=== PATIENT | female | born 1970 | race Caucasian/White ===

== ENCOUNTER → 2017-08-30 | Outpatient (CLI) | payer BC | END | disposition home or self-care (01) | LOC: KCIC MAMMO 07:52 | DX: Z12.31 Encounter for screening mammogram for malignant neoplasm of breast (principal) | CPT/HCPCS: 77067 ==

== ENCOUNTER → 2019-07-22 | Outpatient (CLI) | payer BC ==
--- NOTE | 2019-07-22 18:30 | KCIC ---
Bilateral digital screening mammograms: Reason for examination: Routine screening. Comparison is made to previous study dated 08/30/2017. Interpretation was made with the benefit of CAD. The skin and nipples show no abnormalities. No abnormal axillary lymph nodes are seen. The breast parenchyma shows scattered fibroglandular density. (Breast density: Category B.) There continues to be asymmetric parenchyma in the upper outer quadrant of the right breast which is stable. There is suggestion of some nodularity at the 2:00 B position of the left breast. Further evaluation with ultrasound is recommended. There are no other new dominant masses, suspicious calcifications or architectural distortions. Impression: New nodularity at the 2:00 B position of the left breast. Recommend further evaluation with ultrasound. BI-RADS Category 0: Incomplete. Needs additional imaging evaluation. "Our facility is accredited by the [employer] Mammography [employer]." This patient's information has been entered into a reminder system for the patient to be notified with the results of her examination and a target date for the next mammogram. Electronically signed by: Neda Feldman MD (07/22/2019 6:27 PM) [id number]
== END | disposition home or self-care (01) ==
LOC: KCIC MAMMO 14:11
PROVIDERS: ATTEND Family Medicine
DX: Z12.31 Encounter for screening mammogram for malignant neoplasm of breast (principal); N64.89 Other specified disorders of breast
CPT/HCPCS: 77067

== ENCOUNTER → 2019-08-28 | Outpatient (CLI) | payer BC ==
--- NOTE | 2019-08-28 13:06 | KCIC ---
Left breast ultrasound COMPARISON: Mammogram July 22, 2019 and August 30, 2017 HISTORY: Workup of left upper outer breast 2:00 B position nodular asymmetry. FINDINGS: There is subareolar duct ectasia with extension to the outer breast 3:00 position. At the 2:00 position 6 cm the nipple there is a parallel hypoechoic nonshadowing 5 x 2 mm lesion which is most likely fibrocystic change, which is concordant with the mammogram. Interest. No suspicious abnormality. No axillary adenopathy. IMPRESSION: Left upper outer breast probably benign. Cystic change as well as benign subareolar and outer breast duct ectasia, concordant with the mammographic area of interest. Imaging features are probably benign. Attention on follow-up left mammogram and breast ultrasound in 6 months is advised to document stability. BI-RADS Category 3: Probably benign Electronically signed by: Daryl You MD (08/28/2019 1:03 PM) [id number]
== END | disposition home or self-care (01) ==
LOC: KCIC US 12:26
PROVIDERS: ATTEND Obstetrics & Gynecology
DX: R92.8 Other abnormal and inconclusive findings on diagnostic imaging of breast (principal); N64.89 Other specified disorders of breast; N60.42 Mammary duct ectasia of left breast; N60.02 Solitary cyst of left breast
CPT/HCPCS: 76641

== ENCOUNTER → 2020-02-17 | Outpatient (CLI) | payer BC ==
--- NOTE | 2020-02-17 10:56 | RAD ---
EXAM: Left breast diagnostic mammogram with tomosynthesis; left breast sonogram. HISTORY: 49-year-old female presents for follow-up evaluation of benign-appearing findings within the left breast demonstrated on a mammogram dated 07/22/2019 and sonogram dated 08/28/2019. TECHNIQUE: Full-field digital craniocaudal and mediolateral oblique 2D and 3D tomosynthesis images of both breasts are obtained for evaluation. Computer aided detection was applied. Sonographic imaging of the left breast targeted to sites of findings on the prior study was also performed. COMPARISON: 08/28/2019, 07/22/2019 and 08/30/2017 BREAST PARENCHYMAL DENSITY: Level B - Scattered fibroglandular densities. FINDINGS: There is no new suspicious mass, microcalcification or region of architectural distortion. There is stable increased density within the subareolar aspect of the left breast likely due to previ ously demonstrated ductal ectasia. Sonographic imaging of the left breast demonstrates a stable 3.6 mm suspected benign fibrocystic lesi on at the 2:00 position 6 cm from the nipple. There is ductal ectasia within the subareolar breast pr imarily at the 3:00 position. No intraductal mass is seen. There is no new suspicious sonographic fin ding. IMPRESSION: 1. Stable tiny suspected benign cystic lesion within the 2:00 position of the left breast and ductal ectasia within the subareolar aspect of the left breast. 2. BI-RADS Category 3: Probably benign finding(s). Short term follow up with a left breast sonogram i n 6 months to recommend a year of stability of the finding at the 2:00 position and correspond with t he previously established bilateral mammography interval is recommended. If your mammogram demonstrates that you have dense breast tissue, which could hide abnormalities, and if you have other risk factors for breast cancer that have been identified, you might benefit from s upplemental screening tests that may be suggested by your ordering physician. Dense breast tissue, i n and of itself, is a relatively common condition. This information is not provided to cause undue c oncern, but rather to raise your awareness and to promote discussion with your physician regarding th e presence of other risk factors, in addition to dense breast tissue. A report of your mammography re sults will be sent to you and your physician. You should contact your physician if you have any ques tions or concerns regarding this report. Mammography is a sensitive method for finding small breast cancers, but it does not detect them all a nd is not a substitute for careful clinical examination. A negative mammogram does not negate a clin ically suspicious finding and should not result in delay in biopsying a clinically suspicious abnorma lity. PQRS compliance statement - Patient information was entered into a reminder system with a target due date for the next mammogram. "Our facility is accredited by the [employer] Mammography [employer]." Electronically signed by: Kaleigh Borjas MD (02/17/2020 10:54 AM) [id number]
== END ==
LOC: MAMMO 10:13
PROVIDERS: ATTEND Surgery
DX: N60.42 Mammary duct ectasia of left breast (principal)
CPT/HCPCS: 76641; 77065; G0279; 77061

== ENCOUNTER → 2020-05-06 | Outpatient (CLI) | payer BC ==
--- NOTE | 2020-05-06 17:31 | RAD ---
Examination: 1. Right digital diagnostic mammogram 2. Limited right breast ultrasound. INDICATION: 49-year-old woman presents for imaging evaluation of the palpable area of concern in the lower inner right breast, in the area imaged location to the previous area of self reported palpable area of concern in the contralateral breast earlier this year. COMPARISON: Bilateral mammogram of 07/22/2019 and 08/30/2017. TECHNIQUE: CC and MLO views of the right breast were obtained with 2-D and 3-D technique and full-fie ld right ML view was also obtained with 2-D technique. FINDINGS: Scattered fibroglandular densities. No developing mass, suspicious calcifications or architectural distortion. The area of palpable concern as reported by the patient is marked at the skin surface to the BB marke r and there is no mammographic correlate. There are any interval mammographic change. Targeted ultrasound of this area revealed no suspicious sonographic findings with circulation sales representative imag es acquired at the 3:00 position 7 cm from the nipple. Sonographic survey of the right axilla reveale d no adenopathy either. IMPRESSION: Negative right diagnostic mammogram and targeted right breast ultrasound. No evidence of malignancy. Recommend clinical management which may include biopsy if there are any clinically suspicious finding s. In the absence of a clinically suspicious finding, recommend return to routine screening for the r ight breast in one year. She may be due for short-term follow-up of the left breast in 3 months. BI-RADS Category 1 Negative Electronically signed by: Herbert Ward MD (05/06/2020 5:29 PM) [id number]
== END ==
LOC: MAMMO 13:01
PROVIDERS: ATTEND Surgery
DX: R92.2 Inconclusive mammogram (principal)
CPT/HCPCS: 76641; 77065; G0279; 77061